=== PATIENT | male | born 1935 | race African-American/Black ===

== ENCOUNTER 2016-07-20 03:50 | Inpatient (IN) | payer OTHER, MEDICAID ==
[~2016-07-20] VITALS: Ht 167.6 cm; Wt 86.2 kg
[2016-07-20] MEDS ORDERED: METF500T4 PO (04:48)
[2016-07-20] MEDS ORDERED: ASPI81TA2 PO (04:48)
[2016-07-20] MEDS ORDERED: MAGNESIUM HYDROXIDE 30 ML UDC PO PRN (05:00)
[2016-07-20] MEDS ORDERED: MAG HYDROX/AL HYDROX/SIMETH 30 ML UDC PO PRN (05:00)
[2016-07-20 05:41] VITALS: BP 13/64
[2016-07-20 07:40] LABS: BASOPHILS % (AUTO) 0.3 % (0.0-2.0); DIFF TOTAL % 100 %; EOSINOPHILS # (AUTO) 0.1 /CMM (0.0-0.7); EOSINOPHILS % (AUTO) 1.3 % (0.0-6.0); HEMATOCRIT 35 % (39-51); HEMOGLOBIN 11.9 g/dL (13.5-17.5); LYMPHOCYTES # (AUTO) 1.1 /CMM (0.8-4.8); LYMPHOCYTES % (AUTO) 25.6 % (20.0-44.0); MEAN CORPUSCULAR HEMOGLOBIN 33 PG (26.0-33.0); MEAN CORPUSCULAR HGB CONC 34 g/dl (31.0-36.0); MEAN CORPUSCULAR VOLUME 97 fL (80-96); MONOCYTES # (AUTO) 0.5 /CMM (0.1-1.30); MONOCYTES % (AUTO) 11.1 % (2.0-12.0); NEUTROPHILS # (AUTO) 2.7 /CMM (1.8-8.9); NEUTROPHILS % (AUTO) 61.7 % (43.0-81.0); PLATELET COUNT (AUTO) 197 /CMM (150-450); RED BLOOD CELL COUNT(AUTO) 3.63 MIL/uL (4.5-6.0); WHITE BLOOD COUNT (AUTO) 4.4 K/uL (4.3-11.0)
[2016-07-20 07:54] LABS: ALBUMIN 2.6 g/dL (3.4-5.0); BILIRUBIN,TOTAL 0.5 mg/dL (0.2-1.0); CALCIUM, SERUM 8.3 mg/dL (8.5-10.1); CREATININE 1.2 mg/dL (0.6-1.3); POTASSIUM 3.5 mmol/L (3.5-5.1); TOTAL PROTEIN, SERUM 5.8 g/dL (6.4-8.2)
[2016-07-20 08:00] VITALS: BP 112/56
[2016-07-20] MEDS: LORAZEPAM 0.5 MG TABLET PO PRN (10:52)
[2016-07-20] MEDS ORDERED: OLANZAPINE 10 MG VIAL IM STA (11:02)
[2016-07-20] MEDS: ASPIRIN 81 MG TAB.CHEW PO SCH (15:13)
[2016-07-20 16:00] VITALS: BP 141/77
[2016-07-20] MEDS: METFORMIN 500 MG TABLET PO SCH (17:28)
[2016-07-20] MEDS: OLANZAPINE 5 MG/TAB.RAPDIS PO SCH (17:28)
[2016-07-20 20:00] VITALS: BP 105/63
[2016-07-20] MEDS: DIVALPROEX SODIUM 250 MG TABLET.DR PO SCH ×2 (21:00→21:12)
[2016-07-21 08:00] VITALS: BP 164/75
[2016-07-21] MEDS: DIVALPROEX SODIUM 250 MG TABLET.DR PO SCH ×2 (08:59→21:26)
[2016-07-21] MEDS: OLANZAPINE 5 MG/TAB.RAPDIS PO SCH ×2 (08:59→17:11)
[2016-07-21] MEDS: LORAZEPAM 0.5 MG TABLET PO PRN (08:59)
[2016-07-21] MEDS: ASPIRIN 81 MG TAB.CHEW PO SCH (09:00)
[2016-07-21] MEDS: METFORMIN 500 MG TABLET PO SCH ×2 (09:00→17:11)
[2016-07-21 11:00] VITALS: BP 145/79
[2016-07-21 16:00] VITALS: BP 145/76
[2016-07-21 20:27] VITALS: BP 153/80
[2016-07-21] MEDS: ZOLPIDEM TARTRATE 5 MG TABLET PO PRN (23:35)
[2016-07-22 08:00] VITALS: BP 155/82
[2016-07-22] MEDS: LORAZEPAM 0.5 MG TABLET PO PRN (08:32)
[2016-07-22] MEDS: ASPIRIN 81 MG TAB.CHEW PO SCH (08:32)
[2016-07-22] MEDS: OLANZAPINE 5 MG/TAB.RAPDIS PO SCH ×2 (08:32→17:12)
[2016-07-22] MEDS: METFORMIN 500 MG TABLET PO SCH ×2 (08:34→17:12)
[2016-07-22 08:43] LABS: CHOLESTEROL 135 mg/dL (<200); HDL CHOLESTEROL 47 mg/dL (40-60); LDL 69 mg/dL (0-99); TRIGLYCERIDES 76 mg/dL (30-150)
[2016-07-22] MEDS: DIVALPROEX SODIUM 250 MG TABLET.DR PO SCH ×2 (11:49→21:01)
[2016-07-22] MEDS ORDERED: OLANZAPINE 10 MG VIAL IM ONE (14:30)
[2016-07-22 16:00] VITALS: BP 149/66
[2016-07-22 19:04] VITALS: BP 155/82
[2016-07-22 20:00] VITALS: BP 133/81
[2016-07-22] MEDS: ZOLPIDEM TARTRATE 5 MG TABLET PO PRN (21:01)
[2016-07-23 08:00] VITALS: BP 151/62
[2016-07-23] MEDS: OLANZAPINE 5 MG/TAB.RAPDIS PO SCH ×2 (08:36→16:38)
[2016-07-23] MEDS: DIVALPROEX SODIUM 250 MG TABLET.DR PO SCH ×2 (08:36→21:46)
[2016-07-23] MEDS: ASPIRIN 81 MG TAB.CHEW PO SCH (08:36)
[2016-07-23] MEDS: METFORMIN 500 MG TABLET PO SCH ×2 (08:36→16:38)
[2016-07-23 16:06] VITALS: BP 138/74
[2016-07-23 19:53] VITALS: BP 132/68
[2016-07-23] MEDS: ZOLPIDEM TARTRATE 5 MG TABLET PO PRN (21:47)
[2016-07-24 08:00] VITALS: BP 147/62
[2016-07-24] MEDS: METFORMIN 500 MG TABLET PO SCH ×2 (08:10→16:26)
[2016-07-24] MEDS: ASPIRIN 81 MG TAB.CHEW PO SCH (08:10)
[2016-07-24] MEDS: DIVALPROEX SODIUM 250 MG TABLET.DR PO SCH ×3 (08:10→16:25)
[2016-07-24] MEDS: OLANZAPINE 5 MG/TAB.RAPDIS PO SCH ×2 (08:11→16:25)
[2016-07-24] MEDS: LORAZEPAM 0.5 MG TABLET PO PRN ×2 (09:18→20:13)
[2016-07-24] MEDS: ACETAMINOPHEN 325 MG TABLET PO PRN (11:14)
[2016-07-24 16:00] VITALS: BP 159/54
[2016-07-24 19:52] VITALS: BP 165/94
[2016-07-24] MEDS: ZOLPIDEM TARTRATE 5 MG TABLET PO PRN (21:26)
[2016-07-25] MEDS: ACETAMINOPHEN 325 MG TABLET PO PRN (06:48)
[2016-07-25 08:00] VITALS: BP 131/83
[2016-07-25] MEDS: DIVALPROEX SODIUM 250 MG TABLET.DR PO SCH ×3 (09:24→17:59)
[2016-07-25] MEDS: METFORMIN 500 MG TABLET PO SCH ×2 (09:24→17:00)
[2016-07-25] MEDS: OLANZAPINE 5 MG/TAB.RAPDIS PO SCH ×2 (09:24→17:00)
[2016-07-25] MEDS: ASPIRIN 81 MG TAB.CHEW PO SCH (09:24)
[2016-07-25 16:00] VITALS: BP 131/72
[2016-07-25 20:00] VITALS: BP 109/66
[2016-07-26 08:00] VITALS: BP 152/81
[2016-07-26] MEDS: ASPIRIN 81 MG TAB.CHEW PO SCH (08:20)
[2016-07-26] MEDS: METFORMIN 500 MG TABLET PO SCH ×2 (08:20→16:29)
[2016-07-26] MEDS: DIVALPROEX SODIUM 250 MG TABLET.DR PO SCH ×3 (08:20→16:29)
[2016-07-26] MEDS: OLANZAPINE 5 MG/TAB.RAPDIS PO SCH ×2 (08:21→16:29)
[2016-07-26] MEDS: LORAZEPAM 0.5 MG TABLET PO PRN ×2 (08:27→16:29)
[2016-07-26 16:00] VITALS: BP 145/85
[2016-07-26 19:54] VITALS: BP 158/96
[2016-07-27] MEDS: OLANZAPINE 5 MG/TAB.RAPDIS PO SCH ×2 (08:32→16:48)
[2016-07-27] MEDS: METFORMIN 500 MG TABLET PO SCH ×2 (08:32→16:49)
[2016-07-27] MEDS: ASPIRIN 81 MG TAB.CHEW PO SCH (08:32)
[2016-07-27] MEDS: DIVALPROEX SODIUM 250 MG TABLET.DR PO SCH ×3 (08:32→16:48)
[2016-07-27 16:00] VITALS: BP 129/77
== END 2016-07-27 17:05 | disposition home or self-care (01) | DRG 885 ==
LOC: GPS 03:50
PROVIDERS: ADMIT Psychiatry & Neurology Psychiatry; ATTEND Family Medicine
DX: F29 Unspecified psychosis not due to a substance or known physiological condition (principal); N17.0 Acute kidney failure with tubular necrosis; E11.9 Type 2 diabetes mellitus without complications; D63.8 Anemia in other chronic diseases classified elsewhere; E78.5 Hyperlipidemia, unspecified; H54.61 Unqualified visual loss, right eye, normal vision left eye; I10 Essential (primary) hypertension; I25.10 Atherosclerotic heart disease of native coronary artery without angina pectoris; F20.0 Paranoid schizophrenia
CPT/HCPCS: 36415; 80053-TC; 80061-TC; 80164-TC; 82962-TC; 85025-TC; 87081-TC; J3490